=== PATIENT | female | born 1985 | race African-American/Black ===

== ENCOUNTER 2017-07-26 17:39 | Emergency (ER) | payer SELFPAY ==
[2017-07-26] MEDS ORDERED: NORMAL SALINE 1000 ML 1,000 ML IV PRN (17:52)
[2017-07-26 17:53] VITALS: BP 154/97
--- NOTE | 2017-07-26 17:54 | ER Document Report ---
ED Medical Screen (RME) - General Chief Complaint: Vaginal Discharge Stated Complaint: ABDOMINAL PAIN, VAGINAL DISCHARGE Time Seen by Provider: 07/26/17 17:48 TRAVEL OUTSIDE OF THE [place] IN LAST 30 DAYS: No - HPI Notes: 07/26/17 17:53 Patient states recently FIELD CHECKER procedure [place] placement of an IUD coming in today for vaginal discharge. Patient denies fevers chills nausea vomiting diarrhea chest pain abdominal pain shortness of breath. Patient is slightly tachycardic in triage stating that she is anxious. - Related Data Allergies/Adverse Reactions: aspirin [Aspirin] Allergy (Unknown, Verified 07/26/17 17:53) Unknown reaction Past Medical History - Social History Chew tobacco use (# tins/day): No Frequency of alcohol use: Rare Drug Abuse: None Family history: Reviewed & Not Pertinent Pulmonary Medical History: Reports: Hx Asthma, Hx COPD Renal/ Medical History: Denies: Hx Peritoneal Dialysis - Immunizations Immunizations up to date: Yes Hx Diphtheria, Pertussis, Tetanus Vaccination: Yes - 04/02/13 Review of Systems - Review of Systems Constitutional: Other - Vaginal discharge Physical Exam - Vital signs Vitals: Temp Pulse Resp BP Pulse Ox 98.8 F 131 H 18 154/97 H 99 07/26/17 17:43 07/26/17 17:43 07/26/17 17:43 07/26/17 17:43 07/26/17 17:43 Interpretation: Tachypneic - Cardiovascular Rhythm: Regular, Tachycardia Course - Vital Signs Vital signs: Temp Pulse Resp BP Pulse Ox 98.8 F 131 H 18 154/97 H 99 07/26/17 17:43 07/26/17 17:43 07/26/17 17:43 07/26/17 17:43 07/26/17 17:43
== END 2017-07-26 18:34 | disposition left against medical advice (07) ==
LOC: ER 17:39
DX: N89.8 Other specified noninflammatory disorders of vagina (principal); R10.9 Unspecified abdominal pain; F41.9 Anxiety disorder, unspecified; R00.0 Tachycardia, unspecified; R06.82 Tachypnea, not elsewhere classified; J44.9 Chronic obstructive pulmonary disease, unspecified; Z97.5 Presence of (intrauterine) contraceptive device; Z88.6 Allergy status to analgesic agent; Z53.20 Procedure and treatment not carried out because of patient's decision for unspecified reasons
CPT/HCPCS: 99281

== ENCOUNTER 2017-08-16 16:20 | Emergency (ER) | payer SELFPAY ==
[2017-08-16] MEDS ORDERED: KETOROLAC TROMETHAMINE 60 MG/2 ML SDV IM ONE (17:29)
[2017-08-16 18:28] LABS: ABSOLUTE BASOPHILS # (AUTO) 0.1 10^3/uL (0.0-0.2); ABSOLUTE EOSINOPHILS # (AUTO) 0.3 10^3/uL (0.0-0.6); ABSOLUTE LYMPHOCYTES (AUTO) 1.8 10^3/uL (0.5-4.7); ABSOLUTE MONOCYTES (AUTO) 0.8 10^3/uL (0.1-1.4); ABSOLUTE NEUT (AUTO) 7.1 10^3/uL (1.7-8.2); BASOPHILS % (AUTO) 0.6 % (0-2); EOSINOPHILS % (AUTO) 3.3 % (0-6); HEMATOCRIT 39.9 % (36.0-47.0); HEMOGLOBIN 13.2 g/dL (12.0-15.5); LYMPHOCYTES % (AUTO) 18.1 % (13-45); MEAN CORPUSCULAR HEMOGLOBIN 28.5 pg (27.0-33.4); MEAN CORPUSCULAR HGB CONC 33.1 g/dL (32.0-36.0); MEAN CORPUSCULAR VOLUME 86 fl (80-97); MONOCYTES % (AUTO) 7.6 % (3-13); PLATELET COUNT 280 10^3/uL (150-450); RED BLOOD COUNT 4.63 10^6/uL (3.72-5.28); RED CELL DISTRIBUTION WIDTH 14.1 % (11.5-14.0); SEGMENTED NEUTROPHILS % (AUTO) 70.4 % (42-78); TOTAL CELLS COUNTED % (AUTO) 100 %; WHITE BLOOD COUNT 10.1 10^3/uL (4.0-10.5)
[2017-08-16 18:36] LABS: APPEARANCE,URINE CLOUDY; BILIRUBIN,URINE NEGATIVE (NEGATIVE); COLOR,URINE AMBER; GLUCOSE, URINE NEGATIVE (NEGATIVE); KETONES,URINE NEGATIVE (NEGATIVE); LEUKOCYTE ESTERASE,URINE LARGE (NEGATIVE); NITRITE,URINE NEGATIVE (NEGATIVE); PROTEIN,URINE 100 mg/dL (NEGATIVE)
--- NOTE | 2017-08-16 19:36 | ER Document Report ---
ED GI/ - General Chief Complaint: Vaginal Pain Stated Complaint: PELVIS PAIN Time Seen by Provider: 08/16/17 17:23 Mode of Arrival: Ambulatory Information source: Patient Notes: 32-year-old female presented ED for complaint of suprapubic pain for the last 4 days. She states she had an in May and had an IUD placed at the same time. She states she has been spotting ever since then. She states she has had suprapubic pain at 5 out of 5 and is think she has a discharge because she is having a foul odor. She states she smokes 2-3 cigarettes a day. She is alert oriented pupils equal react light, speaking in full sentences, respirations regular and unlabored, walks with a even steady gait. TRAVEL OUTSIDE OF THE [place] IN LAST 30 DAYS: No - HPI Patient complains to provider of: Pelvic pain, Vaginal bleeding, Vaginal discharge, Other - Suprapubic pain Onset: Other - 4 days Timing/Duration: Persistent Quality of pain: Sharp Severity at maximum: Moderate Severity in ED: Moderate Pain Level: 4 Location: Pelvis Vaginal bleeding (Compared to normal period): Spotting LMP: Has an IUD Associated symptoms: Other - Pelvic pain and vaginal bleeding pelvic code Exacerbated by: Movement Relieved by: Denies Similar symptoms previously: Yes Recently seen / treated by doctor: No - Related Data Allergies/Adverse Reactions: aspirin [Aspirin] Allergy (Unknown, Verified 08/16/17 16:21) Unknown reaction Past Medical History - General Information source: Patient Last Menstrual Period: IUD placed in May - Social History Smoking Status: Current Every Day Smoker Cigarette use (# per day): Yes - 2-3 cigarettes a day Chew tobacco use (# tins/day): No Smoking Education Provided: Yes - 4 minutes Frequency of alcohol use: Social Drug Abuse: None Lives with: Family Family History: Reviewed & Not Pertinent Patient has suicidal ideation: No Patient has homicidal ideation: No - Past Medical History Cardiac Medical History: Reports: None Pulmonary Medical History: Reports: Hx Asthma, Hx COPD EENT Medical History: Reports: None Neurological Medical History: Reports: None Endocrine Medical History: Reports: None Renal/ Medical History: Reports: None Malignancy Medical History: Reports: None GI Medical History: Reports: None Musculoskeltal Medical History: Reports None Skin Medical History: Reports None Psychiatric Medical History: Reports: None Traumatic Medical History: Reports: None Infectious Medical History: Reports: None Past Surgical History: Reports: Hx Dilation and Curettage - Immunizations Immunizations up to date: Yes Hx Diphtheria, Pertussis, Tetanus Vaccination: Yes - 04/02/13 Review of Systems - Review of Systems Constitutional: No symptoms reported EENT: No symptoms reported Cardiovascular: No symptoms reported Respiratory: No symptoms reported Gastrointestinal: No symptoms reported Genitourinary: Burning, Discharge Female Genitourinary: Vaginal discharge, Vaginal bleeding, Vaginal odor Musculoskeletal: No symptoms reported Skin: No symptoms reported Hematologic/Lymphatic: No symptoms reported Neurological/Psychological: No symptoms reported -: Yes All other systems reviewed and negative Physical Exam - Vital signs Vitals: Temp Pulse Resp BP Pulse Ox 98.9 F 91 18 125/69 99 08/16/17 16:35 08/16/17 16:35 08/16/17 16:35 08/16/17 16:35 08/16/17 16:35 Interpretation: Normal - General General appearance: Appears well, Alert - HEENT Head: Normocephalic, Atraumatic Eyes: Normal Pupils: PERRL - Respiratory Respiratory status: No respiratory distress Chest status: Nontender Breath sounds: Normal Chest palpation: Normal - Cardiovascular Rhythm: Regular Heart sounds: Normal auscultation Murmur: No - Abdominal Inspection: Normal Distension: No distension Bowel sounds: Normal Tenderness: Nontender Organomegaly: No organomegaly - Back Back: Normal, Nontender - Extremities General upper extremity: Normal inspection, Nontender, Normal color, Normal ROM , Normal temperature General lower extremity: Normal inspection, Nontender, Normal color, Normal ROM , Normal temperature, Normal weight bearing. No: Brenda's sign - Neurological Neuro grossly intact: Yes Cognition: Normal Orientation: AAOx4 Lila Coma Scale Eye Opening: Spontaneous Lila Coma Scale Verbal: Oriented Lila Coma Scale Motor: Obeys Commands Lila Coma Scale Total: 15 Speech: Normal Motor strength normal: LUE, RUE, LLE, RLE Sensory: Normal - Psychological Associated symptoms: Normal affect, Normal mood - Skin Skin Temperature: Warm Skin Moisture: Dry Skin Color: Normal Course - Re-evaluation Re-evalutation: 08/17/17 01:36 Patient was treated with Bactrim for her UTI and was also treated with azithromycin and Rocephin as she did not want to wait for the results of her GC and chlamydia. Patient was instructed on use of Tylenol Motrin for her discomfort in the pelvic area above her UTI is clearing up. Patient was also given a written report of her pelvic ultrasound which showed there was no IUD in place and that she would need to use other control until she can follow -up with her HAND PACKER/PACKAGER. Patient verbalized understanding of instructions and the need to use control until she follows up with HAND PACKER/PACKAGER. - Vital Signs Vital signs: Temp Pulse Resp BP Pulse Ox 98 F 89 16 115/83 100 08/16/17 20:31 08/16/17 20:31 08/16/17 20:31 08/16/17 20:31 08/16/17 20:31 - Laboratory Result Diagrams: 08/16/17 18:15 Laboratory results interpreted by me: 08/16/17 08/16/17 18:15 18:15 RDW 14.1 H Urine Protein 100 H Urine Blood LARGE H Urine Urobilinogen 2.0 H Ur Leukocyte Esterase LARGE H - Diagnostic Test Radiology reviewed: Image reviewed, Reports reviewed Discharge - Discharge Clinical Impression: Pelvic pain UTI (urinary tract infection) Qualifiers: Urinary tract infection type: site unspecified Hematuria presence: with hematuria Qualified Code(s): N39.0 - Urinary tract infection, site not specified Condition: Stable Disposition: HOME, SELF-CARE Instructions: [facility] Additional Instructions: URINARY TRACT INFECTION: Your evaluation indicates that you have a urinary tract infection. This is due to germs growing in the bladder. This is a common problem. This infection usually responds quickly to antibiotics. Your antibiotic should be taken exactly as prescribed. Drink plenty of fluids -- three to four quarts a day. Occasionally, a bladder anesthetic will be prescribed to help stop the feeling of urgency until the antibiotic has a chance to clear the infection. This may cause your urine to be dark orange. Certain urine infections require a culture. If the doctor obtained a culture, the results will be back in two days. You should call to see if a change in treatment is needed. A repeat urinalysis after you finish treatment is often recommended. The physician will let you know if further testing is required. Call the doctor if you develop fever, chills, flank pain, inability to urinate, or blood in the urine. PELVIC PAIN: There are many causes of pain in the pelvic area. The cause could be the tubes, ovaries, uterus, intestines, appendix, pelvic muscles and connective tissue, or the urinary tract. The cause of your pelvic pain is not clear. However, it seems safe to treat you outside the hospital. If the pain sounds like a temporary problem, we sometimes wait to see if it goes away. Other patients may need additional tests, such as pelvic ultrasound or cultures. Conditions may change. Call us or come back for reexamination if any problems occur, such as: (1) Pain that becomes more severe, steady, or becomes concentrated in one specific area. Also, pain that is more severe with movement or coughing. (2) Vomiting that persists or becomes more frequent. (3) Blood in the vomitus, urine, or bowel movements. Blood in the stool may have a tarry or black appearance. (4) Shaking chills or fever greater than 100 degrees. (5) The abdomen becomes more distended or swollen. (6) Bowel movements cease. (7) Heavy vaginal bleeding. CEPHALOSPORINS: An antibiotic of the cephalosporin class has been prescribed. This type of antibiotic covers a wide variety of infections, including those of the skin, lungs, middle ear, and urinary tract. This antibiotic is somewhat similar to the penicillin family. In rare cases , a person who is allergic to penicillin will also be allergic to this medication. If you have had a severe allergic reaction to penicillin, and have not taken this antibiotic since that time, notify your doctor. Antibiotics which cover many germs ("broad spectrum" antibiotics) are more likely to cause diarrhea or "yeast" infections. Women prone to vaginal yeast problems may suffer an attack after taking this antibiotic. In infants, oral thrush (white spots "stuck" on the cheek) or yeast diaper rash may result. See your doctor if these problems occur. Call the doctor at once if you develop hives, itching, shortness of breath , or lightheadedness. AZITHROMYCIN: Azithromycin (Zithromax) is a broad spectrum antibiotic in the same class as erythromycin. It can treat a variety of bacterial infections, but is most frequently used for respiratory infections. Azithromycin is extremely long-lasting. It accumulates in body tissues and continues to kill bacteria for many days. In order to improve absorption, Azithromycin should be taken at least one hour before or two hours after a meal. It does not have the same strong tendency to upset the stomach as erythromycin and is usually very well tolerated. Patients who have had a rash or other true allergic reactions to erythromycin should not take this medication. Call if you develop gastrointestinal distress, severe diarrhea, rash, hives, itching, or shortness of breath. TRIMETHOPRIM-SULFA: You have been given a prescription for trimethoprim-sulfa (TMS, Septra, Bactrim). This is a combination antibiotic of the sulfa class, often used for urinary tract infections, middle ear infections, bronchitis, shigella intestinal infection, and Pneumocystis pneumonia. TMS is usually well-tolerated. Occasional side effects include nausea and decreased appetite. Septra is not recommended for infants less than two months of age. Do not take this medication if you have experienced severe side effects or allergy to sulfa medicine. You should stop this medicine at once and contact your physician if you develop any rash, joint pain, shortness of breath, bruising, or jaundice ( yellow color in the skin), or if you develop any other new or unusual symptoms. CEPHALEXIN: The antibiotic you've been prescribed is a member of the cephalosporin class. This type of antibiotic covers a wide variety of infections, including those of the skin, lungs, and urinary tract. It's useful for staph infections. This antibiotic is slightly similar to the penicillin family. In rare cases , a person who is allergic to penicillin will also be allergic to this medication. If you have had a severe allergic reaction to penicillin, and have not taken this antibiotic since that time, notify your doctor. Antibiotics which cover many germs ("broad spectrum" antibiotics) are more likely to cause diarrhea or "yeast" infections. Women prone to vaginal yeast problems may suffer an attack after taking this antibiotic. In infants, oral thrush (white spots "stuck" on the cheek) or yeast diaper rash may result. See your doctor if these problems occur. Call at once if you develop itching, hives , shortness of breath, or lightheadedness. FOLLOW-UP CARE: If you have been referred to a physician for follow-up care, call the physician s office for an appointment as you were instructed or within the next two days. If you experience worsening or a significant change in your symptoms, notify the physician immediately or return to the Emergency Department at any time for re-evaluation. Prescriptions: Sulfamethoxazole/Trimethoprim [Septra-Ds 800-160 mg Tablet] 1 tab PO BID #20 tablet Forms: Smoking Cessation Education, Return to Work Referrals: [facility] [Provider Group] - Follow up as needed
[2017-08-16 19:52] LABS: BACTERIA (WET MOUNT) 3+ BACTERIA SEEN; RBCS (WET MOUNT) FEW RBCS SEEN; T.VAGINALIS (WET MOUNT) NO TRICHOMONAS SEEN; WBCS (WET MOUNT) 4+ WBCS SEEN; YEAST (WET MOUNT) NO YEAST SEEN
--- NOTE | 2017-08-16 19:53 | RADIOLOGY REPORT (SQ) ---
EXAM DESCRIPTION: U/S NON-OB PELVIS W/O DOP COMPLETED DATE/TIME: 08/16/2017 7:28 pm REASON FOR STUDY: Pelvic pain COMPARISON: 12/10/2013 TECHNIQUE: Dynamic and static grayscale images acquired of the pelvis via transabdominal approach an d recorded on PACS. Additional selected color Doppler and spectral images recorded. LIMITATIONS: None. FINDINGS: UTERUS: Contour normal. No mass. ENDOMETRIAL STRIPE: Thickened irregular endometrium. No IUD is identified. CERVIX: 3.6 cm. No nabothian cysts. RIGHT OVARY AND DOPPLER: Normal size. No worrisome masses. Normal arterial vascular flow. LEFT OVARY AND DOPPLER: Normal size. No worrisome masses. Normal arterial vascular flow without evide nce for torsion. FREE FLUID: There is some free fluid in the cul-de-sac. OTHER: No other significant finding. MEASUREMENTS: UTERUS: 9.1 x 5.3 x 5.7 cm. ENDOMETRIAL STRIPE: 2.1 cm. RIGHT OVARY: 3.4 x 2.1 x 2 cm. LEFT OVARY: 3.4 x 1.9 x 2.6 cm. IMPRESSION: Thickened irregular endometrium. No IUD is identified. TECHNICAL DOCUMENTATION: JOB ID: [id number] [employer]- All Rights Reserved Rev Reading location - IP/workstation name: [email or web address]
[2017-08-16] MEDS ORDERED: SULFAMETHOXAZOLE/TRIMETHOPRIM 800-160 MG TABLET PO ONE (20:06)
[2017-08-16] MEDS ORDERED: AZITHROMYCIN 250 MG TABLET PO ONE (20:06)
[2017-08-16] MEDS ORDERED: CEFTRIAXONE INJ 250 MG VIAL IM ONE (20:06)
[2017-08-16] MEDS ORDERED: LIDOCAINE 1% INJ-PF (10 MG/ML) 30 ML SDV INFIL ONE (20:06)
[2017-08-16 20:32] VITALS: BP 115/83
[2017-08-16 21:18] LABS: CHLAM PCR NOT DETECTED (NOT DETECT); GON PCR NOT DETECTED (NOT DETECT)
== END 2017-08-16 20:34 | disposition home or self-care (01) ==
LOC: ER 16:20
DX: N39.0 Urinary tract infection, site not specified (principal); R10.2 Pelvic and perineal pain; N93.8 Other specified abnormal uterine and vaginal bleeding; F17.210 Nicotine dependence, cigarettes, uncomplicated; J44.9 Chronic obstructive pulmonary disease, unspecified; Z88.6 Allergy status to analgesic agent
CPT/HCPCS: 99406; 99284; 96372; 36415; 87086; 87210; 85025; 81025; 87088; 81001; 87491; 87591; 76856; J1885; J3490; J0696

== ENCOUNTER 2017-10-01 00:15 | Emergency (ER) | payer SELFPAY ==
[2017-10-01] MEDS ORDERED: HYDROCODONE/ACETAMINOPHEN 5-325 MG TABLET PO ONE (00:41)
[2017-10-01] MEDS ORDERED: LIDOCAINE 4%/TETRACAINE 0.5%/EPI 0.18% 5 ML TOPICAL SOLN TOP ONE (00:41)
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
[2017-10-01] MEDS ORDERED: DIPH/PERTUSS(ACELL)/TETANUS VAC/PF 0.5 ML SYR (>=10YO) IM ONE (02:26)
[2017-10-01] MEDS ORDERED: HYDROCODONE/ACETAMINOPHEN 5-325 MG (6 TAB/ER DISP) PO PRN (02:28)
[2017-10-01 03:21] VITALS: BP 133/84
== END 2017-10-01 03:30 | disposition home or self-care (01) ==
LOC: EEVIPCON 00:15 → ER 00:15
DX: S01.01XA Laceration without foreign body of scalp, initial encounter (principal); Y00.XXXA Assault by blunt object, initial encounter; R51 Headache; M79.631 Pain in right forearm; M25.521 Pain in right elbow; J44.9 Chronic obstructive pulmonary disease, unspecified; Z88.6 Allergy status to analgesic agent
CPT/HCPCS: 12001; 99283; 90471; 73070; 73090; 70450; 90715; J3490

== ENCOUNTER 2018-01-15 17:08 | Emergency (ER) | payer SELFPAY ==
[2018-01-15 17:15] VITALS: BP 131/80
[2018-01-15] MEDS ORDERED: HYDROCODONE/ACETAMINOPHEN 5-325 MG (6 TAB/ER DISP) PO PRN (19:07)
[2018-01-15] MEDS ORDERED: CEPHALEXIN 500 MG CAPSULE PO ONE (19:08)
--- NOTE | 2018-01-15 19:13 | ER Document Report ---
HPI - HPI Pain Level: 5 Notes: The patient is a 32-year-old female with complaint of pain and swelling to the left thumb. Patient reports she believes she has a infection. - CONSTITUTIONAL Constitutional: DENIES: Fever, Chills - EENT EENT: DENIES: Sore Throat, Ear Pain, Eye problems - NEURO Neurology: DENIES: Headache, Weakness, Vision blurred, Dizzinesss / Vertigo - CARDIOVASCULAR Cardiovascular: DENIES: Chest pain - RESPIRATORY Respiratory: DENIES: Trouble Breathing, Coughing - GASTROINTESTINAL Gastrointestinal: DENIES: Abdominal Pain, Black / Bloody Stools - URINARY Urinary: DENIES: Dysuria, Urgency, Frequency - REPRODUCTIVE Reproductive: DENIES: : - MUSCULOSKELETAL Musculoskeletal: DENIES: Extremity pain Past Medical History - General Information source: Patient - Social History Smoking Status: Never Smoker Family History: Reviewed & Not Pertinent Patient has suicidal ideation: No Patient has homicidal ideation: No Pulmonary Medical History: Reports: Hx Asthma, Hx COPD Renal/ Medical History: Denies: Hx Peritoneal Dialysis Past Surgical History: Reports: Hx Dilation and Curettage - Immunizations Immunizations up to date: Yes Hx Diphtheria, Pertussis, Tetanus Vaccination: Yes - 04/02/13 Vertical Provider Document - CONSTITUTIONAL Notes: PHYSICAL EXAMINATION: GENERAL: Well-appearing, well-nourished and in no acute distress. HEAD: Atraumatic, normocephalic. EYES: Pupils equal round extraocular movements intact, conjunctiva are normal. ENT: Nares patent NECK: Normal range of motion LUNGS: No respiratory distress Musculoskeletal: Normal range of motion NEUROLOGICAL: Normal speech, normal gait. PSYCH: Normal mood, normal affect. SKIN: Warm, Dry, normal turgor, no rashes or lesions noted. Swelling, induration and fluctuance to left thumb. - INFECTION CONTROL TRAVEL OUTSIDE OF THE [place] IN LAST 30 DAYS: No Course - Re-evaluation Re-evalutation: Incision and drainage performed, see procedure note. - Vital Signs Vital signs: Temp Pulse Resp BP Pulse Ox 98.8 F 93 14 131/80 H 96 01/15/18 17:14 01/15/18 17:14 01/15/18 17:14 01/15/18 17:14 01/15/18 17:14 Procedures - Incision and Drainage Left thumb Type: Simple Anesthetic type: 1% Lidocaine Blade size: 11 I&D procedure: Betadine prep applied Incision Method: Incision made by scalpel Discharge - Discharge Clinical Impression: Paronychia of finger Condition: Stable Disposition: HOME, SELF-CARE Additional Instructions: Paronychia You have an infection between the nail and the surrounding skin, called a paronychia. The germs infect the area after a minor skin injury, such as a hangnail. This infection is treated by releasing the pus. This is usually done by the skin from the nail. If the infection has spread underneath the nail, partial removal of the nail may be necessary. Hot-soak the area three or four times daily. Antibiotics are often given, but are not always necessary. Healing takes about a week. If pain or swelling becomes severe or if you develop fever or chills, call the doctor or return for re-examination. Please take the antibiotics as prescribed. Use the hot soaks as described above 3-4 times daily. Use the narcotic pain medication only for severe pain, you may take 1/2-1 tablet every 4 hours. Take ibuprofen 600 mg every 6 hours for pain and inflammation as well. Prescriptions: Cephalexin [Cephalexin 500 MG Capsule] 1 cap PO QID #28 cap
== END 2018-01-15 20:04 | disposition home or self-care (01) ==
LOC: ER 17:08
DX: L03.019 Cellulitis of unspecified finger (principal); M79.645 Pain in left finger(s); J44.9 Chronic obstructive pulmonary disease, unspecified
CPT/HCPCS: 99283

== ENCOUNTER 2018-01-19 00:48 | Emergency (ER) | payer SELFPAY ==
[2018-01-19] MEDS ORDERED: LIDOCAINE 1% INJ-PF (10 MG/ML) 30 ML SDV INJ ONE (03:08)
--- NOTE | 2018-01-19 03:52 | ER Document Report ---
HPI - HPI Patient complains to provider of: swelling thumb Pain Level: 5 Context: Pt. stated that a few days ago she presented to the ED for pain and swelling to the left thumb nail area. Stated that she recently got her nails done and had acrylic nails placed. Pt. stated that the provider who took care of her a few days ago was able to express some puss from the wound with a scalpel but the swelling, redness, and fluctuent areas has increased over the last few days. Patient states the pain has also increased. Patient states she was not placed on antibiotics at the time of the first in procedure. Past medical history: None Medications: None Allergies: None - REPRODUCTIVE Reproductive: DENIES: : <ABHIJIT BUCKNER - Last Filed: 01/19/18 23:29> Past Medical History - General Information source: Patient - Social History Smoking Status: Current Every Day Smoker Chew tobacco use (# tins/day): No Frequency of alcohol use: Occasional Drug Abuse: None Family History: Reviewed & Not Pertinent Patient has suicidal ideation: No Patient has homicidal ideation: No Pulmonary Medical History: Reports: Hx Asthma, Hx COPD Renal/ Medical History: Denies: Hx Peritoneal Dialysis Past Surgical History: Reports: Hx Dilation and Curettage - Immunizations Immunizations up to date: Yes Hx Diphtheria, Pertussis, Tetanus Vaccination: Yes - 04/02/13 <ABHIJIT BUCKNER - Last Filed: 01/19/18 23:29> Vertical Provider Document - CONSTITUTIONAL Agree With Documented VS: Yes Notes: GENERAL: Alert, interacts well. No acute distress. HEAD: Normocephalic, atraumatic. EYES: Pupils equal, round, and reactive to light. Extraocular movements intact. ENT: Oral mucosa moist, tongue midline. NECK: Full range of motion. Supple. Trachea midline. LUNGS: Clear to auscultation bilaterally, no wheezes, rales, or rhonchi. No respiratory distress. HEART: Regular rate and rhythm. No murmur ABDOMEN: Soft, non-tender. Non-distended. Bowel sounds present in all 4 quadrants. EXTREMITIES: Moves all 4 extremities spontaneously. normal radial and dorsalis pedis pulses bilaterally. No cyanosis. Significant swelling to entire left thumb, erythema and area of fluctuance noted medial aspect of left thumb. Finger pad with swelling but no fluctuence or induration noted. Patient has acrylic nails on all 10 digits. BACK: no cervical, thoracic, lumbar midline tenderness. No saddle anesthesia, normal distal neurovascular exam. NEUROLOGICAL: Alert and oriented x3. Normal speech. cranial nerves II through XII grossly intact PSYCH: Normal affect, normal mood. SKIN: Warm, dry, normal turgor. - INFECTION CONTROL TRAVEL OUTSIDE OF THE [place] IN LAST 30 DAYS: No <ABHIJIT BUCKNER - Last Filed: 01/19/18 23:29> Course - Re-evaluation Re-evalutation: Patient tolerated procedure well. Discussed need for oral antibiotics at this time. Also discussed need for follow-up with hand surgery. Discussed close follow-up precautions as well. - Vital Signs Vital signs: Temp Pulse Resp BP Pulse Ox 98.6 F 85 18 111/90 H 99 01/19/18 00:58 01/19/18 00:58 01/19/18 00:58 01/19/18 00:58 01/19/18 00:58 <ABHIJIT BUCKNER - Last Filed: 01/19/18 23:29> - Re-evaluation Re-evalutation: 01/20/18 06:16 I evaluate the patient as well. I formed the procedure of drainage of the paronychia of the patient's thumb. Patient has a area of swelling and an area of pus on the lateral aspect of the finger extending from the paronychia. She had swelling that extended around the fingers well to consistent with cellulitis. The pad of the finger was swollen but was not firm. It did not appear that the patient has any pus into the pad of the finger itself. Made an incision into the lateral aspect of the finger around the area of the paronychia where there is obvious pus. Pus was drained. Loculations were broken up. The area was flushed with saline. We will place the patient on antibiotics. We will have the patient follow-up with a hand surgeon, Dr. Edge, and on Monday. I informed the patient if she has any increasing swelling or any spreading of redness she must return to ER immediately. Patient agrees with plan and will be discharged home. Dictation of this chart was performed using voice recognition software; therefore, there may be some unintended grammatical errors. - Vital Signs Vital signs: Temp Pulse Resp BP Pulse Ox 98.5 F 83 18 117/90 H 99 01/19/18 04:19 01/19/18 04:19 01/19/18 04:19 01/19/18 04:19 01/19/18 04:19 <AGNES MARIA - Last Filed: 01/20/18 06:17> Procedures - Incision and Drainage thumb Type: Simple Anesthetic type: 1% Lidocaine Blade size: 11 I&D procedure: Shurclens applied, Sterile dressing applied Incision Method: Incision made by scalpel Amount/type of drainage: 2cc Hands back picture: 1 - swelling, fluctuence noted <ABHIJIT BUCKNER - Last Filed: 01/19/18 23:29> Discharge <ABHIJIT BUCKNER - Last Filed: 01/19/18 23:29> <AGNES MARIA - Last Filed: 01/20/18 06:17> - Discharge Clinical Impression: Paronychia of finger Qualifiers: Laterality: left Qualified Code(s): L03.012 - Cellulitis of left finger Condition: Stable Disposition: HOME, SELF-CARE Instructions: Paronychia ([facility]) Additional Instructions: You have been seen and treated in the emergency room for a paronychia. This is an infection around the nail bed in the distal finger. You should take medications as prescribed and follow-up with hand surgeon, phone numbers will be given in this packet. You should return to the emergency room should you develop a fever or the redness, swelling, pain increase or for any other concerning symptoms. Prescriptions: Cephalexin Monohydrate [Keflex 500 mg Capsule] 500 mg PO BID 7 Days #14 capsule Hydrocodone/Acetaminophen [[place] 5-325 mg Tablet] 1 tab PO Q4 #15 tablet Sulfamethoxazole/Trimethoprim [Bactrim Ds Tablet] 1 each PO BID 7 Days #14 tablet Referrals: DEBBIE EDGE DO [ACTIVE STAFF] - Follow up as needed
[2018-01-19] MEDS ORDERED: HYDROCODONE/ACETAMINOPHEN 5-325 MG TABLET PO ONE (03:55)
[2018-01-19] MEDS ORDERED: HYDROCODONE/ACETAMINOPHEN 5-325 MG (6 TAB/ER DISP) PO PRN (03:58)
[2018-01-19 04:20] VITALS: BP 117/90
== END 2018-01-19 04:21 | disposition home or self-care (01) ==
LOC: ER 00:48
PROC: 0H9GXZZ Drainage of Left Hand Skin, External Approach (ICD-10-PCS; principal; 2018-01-19)
DX: M79.89 Other specified soft tissue disorders (principal); M79.645 Pain in left finger(s); F17.200 Nicotine dependence, unspecified, uncomplicated; J44.9 Chronic obstructive pulmonary disease, unspecified
CPT/HCPCS: 99283; 10060; J3490

== ENCOUNTER 2018-02-11 11:28 | Emergency (ER) | payer SELFPAY ==
[2018-02-11 11:34] VITALS: BP 124/73
--- NOTE | 2018-02-11 11:44 | ER Document Report ---
ED Medical Screen (RME) - General TRAVEL OUTSIDE OF THE [place] IN LAST 30 DAYS: No - General Chief Complaint: Eye Problem Stated Complaint: EYE PAIN Time Seen by Provider: 02/11/18 11:39 Notes: 33-year-old female who presents to the emergency department today with complaints of right eye pain for 4 days. Patient states her eye irritation began 4 days ago and it was only a burning sensation then. Patient states she took out her contacts then thinking this could be causing her symptoms. Patient states 2 days ago she developed pain in the right eye and yesterday developed blurry vision. Patient states she has a history of an "eye ulcer" but states that she "did not even know about it because it was found on a routine eye exam" so the symptoms she is having today are not similar to that. Patient complains of photophobia now. Patient denies a sensation that there is a foreign body in the eye. I have greeted and performed a rapid initial assessment of this patient. A comprehensive ED assessment and evaluation of the patient, analysis of test results, and completion of the medical decision making process will be conducted by additional ED providers. Review of systems: Constitutional: No symptoms reported EENT: Right eye pain, blurry vision, photophobia Cardiovascular: No symptoms reported Respiratory: No symptoms reported Gastrointestinal: No symptoms reported Genitourinary: No symptoms reported Musculoskeletal: No symptoms reported Skin: No symptoms reported Hematologic/Lymphatic: No symptoms reported Neurological/Psychological: No symptoms reported Yes All other systems reviewed and negative PHYSICAL EXAM GENERAL: Alert, interacts well. Appears to be in some pain. HEAD: Normocephalic, atraumatic. EYES: Pupils equal, round, and reactive to light. Extraocular movements intact. Significant right conjunctival injection, excessive tearing of the right eye, no discharge or crusting. Minimal right eyelid erythema consistent with consistent wiping of the eye. There is a small cloudy area centrally on the right cornea. Slit lamp exam to be performed in the back. Complains of photophobia. ENT: Oral mucosa moist, tongue midline. NECK: Full range of motion. Supple. Trachea midline. LUNGS: No respiratory distress. EXTREMITIES: Moves all 4 extremities spontaneously. NEUROLOGICAL: Alert and oriented x3. Normal speech. PSYCH: Normal affect, normal mood. SKIN: Warm, dry, normal turgor. No rashes or lesions noted. (MARIA ALEJANDRA MARTINEZ) - Related Data Allergies/Adverse Reactions: aspirin [Aspirin] Allergy (Unknown, Verified 01/15/18 17:10) Unknown reaction Past Medical History - Social History Family history: Reviewed & Not Pertinent Pulmonary Medical History: Reports: Hx Asthma, Hx COPD Renal/ Medical History: Denies: Hx Peritoneal Dialysis Past Surgical History: Reports: Hx Dilation and Curettage - Immunizations Immunizations up to date: Yes Hx Diphtheria, Pertussis, Tetanus Vaccination: Yes - 04/02/13 - Vital signs Vitals: Temp Pulse Resp BP Pulse Ox 98.1 F 77 20 124/73 98 02/11/18 11:32 02/11/18 11:32 02/11/18 11:32 02/11/18 11:32 02/11/18 11:32 - Vital Signs Vital signs: Temp Pulse Resp BP Pulse Ox 98.1 F 77 20 124/73 98 02/11/18 11:32 02/11/18 11:32 02/11/18 11:32 02/11/18 11:32 02/11/18 11:32 Scribe Documentation - Scribe Written by Fercho:: Fercho Rivera, 02/11/2018 1156 acting as scribe for :: Marsha
[2018-02-11] MEDS ORDERED: TETRACAINE HCL 0.5% OPH SOLN 4 ML ONE (11:49)
--- NOTE | 2018-02-11 12:10 | ER Document Report ---
ED Eye Complaint - General Chief Complaint: Eye Problem Stated Complaint: EYE PAIN Time Seen by Provider: 02/11/18 11:39 Information source: Patient Notes: Patient is a 33-year-old female that presents with 3 days of some right eye irritation, tearing, and some nasal congestion. She denies any fevers or vomiting. She states she wears contacts. She states her tetanus is up-to- date. She states she does have a history of an eye also to that eye that she had previously been treated for. She states she had no symptoms at that time and was found on a routine eye examination. Patient currently does not have a job and has not engaged in any activities where she has felt a foreign body enter her eye. Patient denies any swelling around the eye, fevers or vomiting. TRAVEL OUTSIDE OF THE [place] IN LAST 30 DAYS: No - HPI Onset: Other - See above Eye location: Right Injury: No Occurred at: Other - See above Quality of pain: Burning Severity: Mild Pain Level: 1 - See above Exposure: Other Safety glasses worn: No Contact lenses worn: Yes Associated symptoms: Other - See above - Related Data Allergies/Adverse Reactions: aspirin [Aspirin] Allergy (Unknown, Verified 01/15/18 17:10) Unknown reaction Past Medical History - Social History Smoking Status: Current Every Day Smoker Chew tobacco use (# tins/day): No Frequency of alcohol use: Occasional Drug Abuse: None Family History: Reviewed & Not Pertinent Patient has suicidal ideation: No Patient has homicidal ideation: No Pulmonary Medical History: Reports: Hx Asthma, Hx COPD Renal/ Medical History: Denies: Hx Peritoneal Dialysis Past Surgical History: Reports: Hx Dilation and Curettage - Immunizations Immunizations up to date: Yes Hx Diphtheria, Pertussis, Tetanus Vaccination: Yes - 04/02/13 Physical Exam - Vital signs Vitals: Temp Pulse Resp BP Pulse Ox 98.1 F 77 20 124/73 98 02/11/18 11:32 02/11/18 11:32 02/11/18 11:32 02/11/18 11:32 02/11/18 11:32 Interpretation: Normal Notes: Reviewed vital signs and nursing note as charted by RN. CONSTITUTIONAL: Alert and oriented and responds appropriately to questions. Well -appearing; well-nourished HEAD: Normocephalic; atraumatic EYES: PERRL; conjunctiva injected; full extraocular range of motion without pain. No periorbital swelling. I provided tetracaine and fluorescein and I do not detect any obvious uptake. Patient does have a circular whitish-like lesion to the 10:00 aspect of the iris. I do not detect any foreign body using the slit lamp. No cell or flare noted ENT: Normal nose; no rhinorrhea; moist mucous membranes; pharynx without lesions noted SKIN: No acute lesions noted NEURO: CN 2-12 intact PSYCH: The patient's mood and manner are appropriate. Grooming and personal hygiene are appropriate. Course - Re-evaluation Re-evalutation: 02/11/18 12:09 Given the above history and physical examination with the extensive eye examination, I do see the circular whitish-like lesion to the 10:00 portion of the iris. I do not see any foreign body embedded in this area using the slit lamp. I believe that the patient possibly may have had a previous foreign body that has now been removed and is currently having some eye irritation. I do not detect any other obvious eye pathology. Without contacts in the patient's visual acuity as recorded. Patient's tetanus is up-to-date. I will provide erythromycin eye ointment as well as outpatient follow-up with the concert pianist. 02/11/18 12:39 Sina-Pen pressure prior to departure was normal using the Sina-Pen. No change in exam. - Vital Signs Vital signs: Temp Pulse Resp BP Pulse Ox 98.1 F 77 20 124/73 98 02/11/18 11:32 02/11/18 11:32 02/11/18 11:32 02/11/18 11:32 02/11/18 11:32 Discharge - Discharge Clinical Impression: Pain, eye, right Condition: Good Disposition: HOME, SELF-CARE Instructions: Antibiotic Therapy ([facility]) Additional Instructions: Come back immediately with any increased irritation, swelling of the eye, fevers or vomiting, blurry vision, or any other acute problems. Please make sure that you follow-up with the concert pianist at the phone number and address provided tomorrow as we have discussed. Prescriptions: Erythromycin Base [Erythromycin Oph 1 Gm Oint Ud] 1 applic LFT_EYE QID #1 tube Referrals: ROGER DARBY MD [ACTIVE STAFF] - Follow up as needed
[2018-02-11] MEDS ORDERED: ERYTHROMYCIN 0.5% OPH OINT 1 GM UNIT DOSE OD ONE (12:39)
== END 2018-02-11 12:54 | disposition home or self-care (01) ==
LOC: ER 11:28
DX: H57.11 Ocular pain, right eye (principal); R09.81 Nasal congestion; F17.200 Nicotine dependence, unspecified, uncomplicated; J44.9 Chronic obstructive pulmonary disease, unspecified
CPT/HCPCS: 99283

== ENCOUNTER 2019-03-21 18:08 | Emergency (ER) | payer SELFPAY ==
[2019-03-21] MEDS ORDERED: IBUPROFEN 600 MG TABLET PO ONE (19:38)
[2019-03-21] MEDS ORDERED: ONDANSETRON ODT 4 MG TAB (6 TAB/ER DISP) PO PRN (19:38)
[2019-03-21] MEDS ORDERED: ACETAMINOPHEN 325 MG TABLET PO ONE (19:38)
--- NOTE | 2019-03-21 19:41 | ER Document Report ---
HPI - HPI Time Seen by Provider: 03/21/19 19:31 Pain Level: 3 Context: 34-year-old female presents the emergency department with flulike symptoms for the past 3 to 4 days. Patient states that over the last 24 hours she has had nausea and vomiting. No diarrhea. Patient states that she has body aches, headache, cough, intermittent fevers. Patient is a smoker. There are sick contacts in the house with similar symptoms. - REPRODUCTIVE Reproductive: DENIES: : Past Medical History - Social History Smoking Status: Current Every Day Smoker Chew tobacco use (# tins/day): No Frequency of alcohol use: Rare Drug Abuse: None Family History: Reviewed & Not Pertinent Patient has suicidal ideation: No Patient has homicidal ideation: No Pulmonary Medical History: Reports: Hx Asthma, Hx COPD Renal/ Medical History: Denies: Hx Peritoneal Dialysis Past Surgical History: Reports: Hx Dilation and Curettage - Immunizations Immunizations up to date: Yes Hx Diphtheria, Pertussis, Tetanus Vaccination: Yes - 04/02/13 Vertical Provider Document - CONSTITUTIONAL Notes: PHYSICAL EXAMINATION: Reviewed vital signs and charting by RN GENERAL: Alert, interacts well. No acute distress. HEAD: Normocephalic, atraumatic. EYES: Pupils equal and round. Extraocular movements intact. ENT: Oral mucosa moist, tongue midline. NECK: Full range of motion. Trachea midline. LUNGS: Clear to auscultation bilaterally, no wheezes, rales, or rhonchi. No respiratory distress. HEART: Regular rate and rhythm. No murmur ABDOMEN: soft, non-tender. No distention. Bowel sounds present EXTREMITIES: Moves all 4 extremities spontaneously. No edema, No cyanosis. PSYCH: Normal affect, normal mood. SKIN: Warm, dry, normal turgor. No rashes or lesions noted. - INFECTION CONTROL TRAVEL OUTSIDE OF THE [place] IN LAST 30 DAYS: No Course - Re-evaluation Re-evalutation: 03/21/19 19:41 Patient presents with cough, vomiting, diarrhea, and fever at home consistent with a flulike illness.Clinical history and exam is not consistent with an acute bacterial meningitis, encephalitis, pneumonia, there is no evidence of a cellu litis on examination. Patient likewise denies any urinary symptoms. Patient does not have any focal abdominal tenderness to suggest an acute biliary pathology, acute appendicitis, acute mesenteric ischemia, bowel obstruction, bowel, or any other life-threatening acute intra-abdominal pathology as the etiology of the fever and additional symptoms today. Labs are otherwise unremarkable. Patient is tolerated oral intake without difficulty. Vitals at time of reassessment are within normal limits. At this time will discharge with return precautions and follow-up recommendations. Verbal discharge instructions given a the bedside and opportunity for questions given. Medication warnings reviewed. Patient is in agreement with this plan and has verbalized understanding of return precautions and the need for primary care follow-up in the next 24-72 hours. - Vital Signs Vital signs: Temp Pulse Resp BP Pulse Ox 98.8 F 88 16 116/60 98 03/21/19 18:19 03/21/19 18:19 03/21/19 18:19 03/21/19 18:19 03/21/19 18:19 Discharge - Discharge Clinical Impression: Flu-like symptoms Nausea and vomiting Qualifiers: Vomiting type: unspecified Vomiting Intractability: non-intractable Qualified Code(s): R11.2 - Nausea with vomiting, unspecified Condition: Good Disposition: HOME, SELF-CARE Additional Instructions: You have flulike symptoms that could potentially be influenza. Because you are 3 to 4 days into the course of illness testing and for it would not change our management. There is no treatment that is effective for this diagnosis other than supportive care at home. This includes drinking plenty of fluids, using Tylenol or ibuprofen as needed for fever and discomfort, and Zofran as needed for nausea and vomiting. Please follow closely with you primary care physician the next 1-2 days regarding this diagnosis. Return to the emergency department immediately if you began to have persistent vomiting prevents you from being able to keep fluids down for more than 12 hours, you pass out, you began having difficulty breathing, you become confused, or you have any other symptoms that are worrisome to you.
[2019-03-21 20:21] VITALS: BP 114/64
[2019-03-21 21:01] LABS: APPEARANCE,URINE CLOUDY; BILIRUBIN,URINE NEGATIVE (NEGATIVE); GLUCOSE, URINE NEGATIVE (NEGATIVE); KETONES,URINE NEGATIVE (NEGATIVE); LEUKOCYTE ESTERASE,URINE MODERATE (NEGATIVE); NITRITE,URINE NEGATIVE (NEGATIVE); PROTEIN,URINE 30 mg/dL (NEGATIVE); URINE SPECIFIC GRAVITY 1.026
[2019-03-21 21:02] LABS: COLOR,URINE YELLOW
== END 2019-03-21 20:19 | disposition home or self-care (01) ==
LOC: ER 18:08
DX: R11.2 Nausea with vomiting, unspecified (principal); R51 Headache; R05 Cough; R50.9 Fever, unspecified; F17.200 Nicotine dependence, unspecified, uncomplicated; J44.9 Chronic obstructive pulmonary disease, unspecified
CPT/HCPCS: 81001; 81025; 99283

== ENCOUNTER 2019-05-27 22:18 | Emergency (ER) | payer SELFPAY ==
[2019-05-27] MEDS ORDERED: ACETAMINOPHEN 325 MG TABLET PO ONE ×2 (22:33→23:13)
--- NOTE | 2019-05-27 23:25 | ER Document Report ---
HPI - HPI Time Seen by Provider: 05/27/19 23:12 Pain Level: 5 Notes: Patient is a 34-year-old female who presents to the ED complaining of nasal congestion/discharge, dry nonproductive cough, fever, body ache 1d. Patient states that she is still eating and drinking without difficulties, but does have a decreased p.o. intake. She is still urinating normally having normal bowel movements. Patient has been using some [id number] meds for symptoms. She denies any significant past medical history including cardiopulmonary history and immunocompromised conditions. Denies any current headache, neck pain, sore throat, chest pain, palpitations, syncope, shortness of breath, wheeze, dyspnea, abdominal pain, nausea/vomiting/diarrhea, urinary retention, dysuria, hematuria, or rash. - ROS Systems Reviewed and Negative: Yes All other systems reviewed and negative - REPRODUCTIVE LMP: 05/21/19 Reproductive: DENIES: : Past Medical History - Social History Smoking Status: Current Every Day Smoker Chew tobacco use (# tins/day): No Frequency of alcohol use: None Drug Abuse: None Family History: Reviewed & Not Pertinent Patient has suicidal ideation: No Patient has homicidal ideation: No Pulmonary Medical History: Reports: Hx Asthma, Hx COPD Renal/ Medical History: Denies: Hx Peritoneal Dialysis Past Surgical History: Reports: Hx Dilation and Curettage - Immunizations Immunizations up to date: Yes Hx Diphtheria, Pertussis, Tetanus Vaccination: Yes - 04/02/13 Vertical Provider Document - CONSTITUTIONAL Agree With Documented VS: Yes Notes: PHYSICAL EXAMINATION: GENERAL: Well-appearing, well-nourished and in no acute distress. A&Ox4. Answers questions appropriately. Moves comfortably w/o notable distress HEAD: Atraumatic, normocephalic. EYES: Pupils equal round and reactive to light, extraocular movements intact, sclera anicteric, conjunctiva are normal. ENT: Nares patent and with clear discharge. oropharynx no erythema without exudates. No tonsilar hypertrophy without erythema or exudate. No palatine shift. Uvula midline. No tongue protrusion. No drooling, hoarseness, or a irway compromise. Moist mucous membranes. No sinus tenderness. NECK: Normal range of motion, supple without lymphadenopathy. No rigidity/meningismus. LUNGS: Breath sounds clear to auscultation bilaterally and equal. No wheezes rales or rhonchi. No retractions HEART: Regular rate and rhythm without murmurs, rubs, gallops. ABDOMEN: Soft, nontender, nondistended abdomen. No guarding, no rebound. Normal bowel sounds present. No CVA tenderness bilaterally. NEUROLOGICAL: Normal speech, normal gait. PSYCH: Normal mood, normal affect. SKIN: Warm, Dry, normal turgor, no rashes or lesions noted. - INFECTION CONTROL TRAVEL OUTSIDE OF THE [place] IN LAST 30 DAYS: No Course - Re-evaluation Re-evalutation: 05/27/19 23:25 Patient is an afebrile, well-hydrated, 34-year-old female who presents to the ED with acute URI, suspect influenza. Vitals are acceptable. PE is otherwise unre markable. No labs or imaging warranted at this time based on H&P. Patient has no significant cardiopulmonary or immunocompromised medical conditions. Patient's lungs are clear to auscultation bilaterally without tachycardia, hypoxia, or tachypnea. Patient is tolerating p.o. without any difficulties. Thoroughly reviewed the risks, benefits, potential side effects, estimated cost without insurance with patient. After thorough review, patient requested Tamiflu at this time. Low suspicion for any meningitis, sepsis, peritonsillar/pharyngeal abscess, respiratory compromise, severe dehydration, or other emergent systemic condition at this time. Patient is aware this condition can change from initial presentation and she needs to monitor symptoms closely. Conservative measures otherwise for symptoms. Recheck with your PCM in 3-5 days. Return to the ED with any worsening/concerning symptoms otherwise as reviewed in discharge. Patient is in agreement. - Vital Signs Vital signs: Temp Pulse Resp BP Pulse Ox 102.0 F H 104 H 18 135/75 H 97 05/27/19 22:23 05/27/19 22:23 05/27/19 22:23 05/27/19 22:23 05/27/19 22:23 Discharge - Discharge Clinical Impression: Acute URI Condition: Stable Disposition: HOME, SELF-CARE Additional Instructions: Maintain adequate fluid intake tylenol/ibuprofen as needed alternating every 3 hours for fever/body ache over the counter cold medication as needed for symptoms Humidified air may help Wash your hands regularly Wear a mask when coughing F/u: with your PCM in 3-5 days for a recheck Return to the ED with any fever, altered mental status/behavior, chest pain, palpitations, syncope, headache, neck pain/stiffness, shortness of breath, chest pains, wheezing, drooling, trouble swallowing/breathing, abdominal pain, n/v/d, rash, or worsening/concerning symptoms otherwise. Prescriptions: Oseltamivir Phosphate [Tamiflu 75 mg Capsule] 75 mg PO BID #10 capsule Forms: Elevated Blood Pressure, Return to Work Referrals: [facility] [Provider Group] - Follow up as needed
[2019-05-27 23:29] VITALS: BP 136/73
== END 2019-05-27 23:31 | disposition home or self-care (01) ==
LOC: ER 22:18
DX: J06.9 Acute upper respiratory infection, unspecified (principal); R09.81 Nasal congestion; R09.89 Other specified symptoms and signs involving the circulatory and respiratory systems; R05 Cough; R50.9 Fever, unspecified; M79.10 Myalgia, unspecified site; F17.200 Nicotine dependence, unspecified, uncomplicated; J44.9 Chronic obstructive pulmonary disease, unspecified
CPT/HCPCS: 99283